=== PATIENT | female | born 1985 | race Caucasian/White ===

== ENCOUNTER 2025-01-11 16:08 | Emergency (ER) | payer OTHER ==
[~2025-01-11] VITALS: Ht 170.2 cm; Wt 73.0 kg
[2025-01-11] MEDS ORDERED: ACETAMINOPHEN 325 MG TABLET PO ONE (18:00)
[2025-01-11] MEDS ORDERED: DIPHENHYDRAMINE HCL 50 MG/ML VIAL 1ML IV ONE (18:00)
[2025-01-11] MEDS ORDERED: PREDNISONE 10 MG TABLET PO ONE (18:00)
[2025-01-11] MEDS ORDERED: 0.9 % SODIUM CHLORIDE 500 ML IV ONE (18:00)
[2025-01-11] MEDS ORDERED: DIPHENHYDRAMINE HCL 50 MG/ML VIAL 1ML ONE (18:20)
[2025-01-11] MEDS ORDERED: ACETAMINOPHEN 500 MG GEL..CAP PO ONE (18:20)
[2025-01-11] MEDS ORDERED: METOCLOPRAMIDE HCL 5 MG/ML VIAL ONE (19:54)
[2025-01-11] MEDS ORDERED: METOCLOPRAMIDE HCL 5 MG/ML VIAL IV ONE (20:00)
[2025-01-11 20:15] LABS: BASO % 0.2 % (0.1-1.2); EOS # 0.01 (0.04-0.54); EOS % 0.1 % (0.7-7.0); HEMATOCRIT 30.1 % (34.1-44.9); HEMOGLOBIN 10.2 g/dL (11.2-15.7); LYMPH # 1.13 (1.18-3.74); LYMPH % 6.5 % (19.3-53.1); MEAN CORPUSCULAR HEMOGLOBIN 28.5 pg (25.6-32.2); MONO # 0.74 (0.24-0.82); MONO % 4.2 % (4.7-12.5); NEUT # 15.48 (1.56-6.13); NEUT % 88.4 % (34.0-71.1); PLATELET COUNT 356 K/uL (163-369); RED BLOOD COUNT 3.58 M/uL (3.93-5.22); RED CELL DISTRIBUTION WIDTH 13.7 % (11.6-14.4)
[2025-01-11 20:45] LABS: ALBUMIN 2.9 gm/dL (3.4-5.0); BILIRUBIN TOTAL 0.22 mg/dL (0.3-1.2); CALCIUM 8.2 mg/dL (8.5-10.1); CREATININE SERUM 0.52 mg/dL (0.55-1.02); GFR 132.69; GLOBULINA 4.2 G/DL (2.4-3.5); POTASSIUM 3.86 mEq/L (3.5-5.1); TOTAL PROTEIN 7.1 gm/dL (6.4-8.2)
[2025-01-11 21:11] LABS: COVID-19 AG NEGATIVE (NEGATIVE)
[2025-01-11 21:12] LABS: INFLUENZA A AG NEGATIVE (NEGATIVE); INFLUENZA B AG NEGATIVE (NEGATIVE)
[2025-01-11] MEDS ORDERED: BUTALB/ACETAMINOPHEN/CAFFEINE 1 TAB TABLET PO ONE ×2 (21:30→21:32)
[2025-01-11] MEDS ORDERED: CEPHALEXIN 500 MG CAPSULE PO SCH (23:08)
[2025-01-11 23:14] LABS: PH,URINE 6.5 (5.0-8.0); URINE APPEARANCE Clear; URINE BILIRRUBIN Negative (NEGATIVE); URINE BLOOD Negative; URINE COLOR Yellow; URINE GLUCOSE Negative (NEGATIVE); URINE KETONE Negative (NEGATIVE); URINE LEUKOCYTE Negative; URINE NITRATE Negative; URINE PROTEIN Negative (NEGATIVE)
[2025-01-11] MEDS ORDERED: SUMATRIPTAN SUCCINATE 6 MG/0.5 ML VIAL SUBCUTANEO ONE ×2 (23:15→23:31)
[2025-01-11] MEDS ORDERED: PROMETHAZINE HCL 50 MG/ML AMPUL IM ONE ×2 (23:15→23:32)
[2025-01-11 23:17] LABS: URINE BACTERIA 441.7 uL (0.0-1933); URINE EPITHELIAL CELLS 37.7 uL (0.0-38.8); URINE RBC 5.5 uL (0.0-20.8); URINE WBC 9.8 uL (0.0-23.2)
[2025-01-12] MEDS ORDERED: BUTALBIT-ACETA1 EACH PO (00:03)
[2025-01-12 00:29] LABS: URINE CAST 0.29 uL (0.0-1.40)
[2025-01-12] MEDS ORDERED: BUTALB/ACETAMINOPHEN/CAFFEINE 1 TAB TABLET PO SCH (01:00)
== END 2025-01-12 01:31 | disposition home or self-care (01) ==
LOC: ER 16:08
PROVIDERS: General Practice
DX: O99.891 Other specified diseases and conditions complicating pregnancy (principal); Z3A.20 20 weeks gestation of pregnancy; G43.809 Other migraine, not intractable, without status migrainosus; Z20.822 Contact with and (suspected) exposure to COVID-19